=== PATIENT | male | born 2000 | race Caucasian/White ===

== ENCOUNTER 2023-09-03 01:26 | Emergency (ER) | payer MEDICAID, OTHER ==
[~2023-09-03] VITALS: Ht 185.4 cm; Wt 79.1 kg
[~2023-09-03 01:26] MED LIST: NOCURR
[2023-09-03 01:50] VITALS: TEMP 98.7
[2023-09-03] MEDS ORDERED: HYDROCORTISONE VALERATE 0.2% TP ONE (02:15)
[2023-09-03 03:48] VITALS: BP 130/75; PULSE 86; RESP 16
== END 2023-09-03 03:45 | disposition home or self-care (01) ==
LOC: EMS 01:27
DX: N47.7 Other inflammatory diseases of prepuce (principal)
CPT/HCPCS: 99283